=== PATIENT | female | born 1945 | race Hispanic/Latino ===

== ENCOUNTER 2020-08-19 06:17 | Emergency (ER) | payer MEDICAID, MEDICARE ==
[2020-08-19] MEDS ORDERED: ASPIRIN 325 MG TAB PO ONE (06:27)
--- NOTE | 2020-08-19 07:05 | XRay Report ---
XR chest routine 2V INDICATION / CLINICAL INFORMATION: chest pain COMPARISON: None available. FINDINGS: SUPPORT DEVICES: Transvenous pacemaker. HEART / MEDIASTINUM: No significant abnormality. LUNGS / PLEURA: Lungs are clear. Costophrenic sulci are sharp. No pneumothorax. ADDITIONAL FINDINGS: No significant additional findings. IMPRESSION: 1. No acute findings. Signer Name: Maximiliano Dela Cruz MD Signed: 08/19/2020 7:01 AM Workstation Name: [id number]
[2020-08-19 07:22] LABS: Basophils % (Auto) 0.5 % (0.0-1.8); Eosinophils # (Auto) 0.3 K/mm3 (0.0-0.4); Eosinophils % (Auto) 3.6 % (0.0-4.3); Hematocrit 39.7 % (30.3-42.9); Hemoglobin 13.3 gm/dl (10.1-14.3); Lymphocytes # (Auto) 2.2 K/mm3 (1.2-5.4); Lymphocytes % (Auto) 26.9 % (13.4-35.0); Mean Corpuscular HGB Conc 34 % (30-34); Mean Corpuscular Volume 85 fl (79-97); Monocytes # (Auto) 0.8 K/mm3 (0.0-0.8); Monocytes % (Auto) 9.3 % (0.0-7.3); Platelet Count 335 K/mm3 (140-440); Red Blood Count 4.67 M/mm3 (3.65-5.03); Red Cell Distribution Width 14.6 % (13.2-15.2)
[2020-08-19 07:47] LABS: Alanine Aminotransferase 21 units/L (7-56); Albumin 4.5 g/dL (3.9-5); Blood Urea Nitrogen 16 mg/dL (7-17); Calcium 9.8 mg/dL (8.4-10.2); Hemolysis Index 4
[2020-08-19 07:48] LABS: BUN/Creatinine Ratio 23
[2020-08-19] MEDS ORDERED: HYDROcodone/ACETAMINOPHEN 5-325 MG TAB PO ONE (08:48)
[2020-08-19] MEDS ORDERED: ASPIRIN 81 MG TAB CHEW PO ONE (08:48)
--- NOTE | 2020-08-19 08:48 | Emergency Department Report ---
ED Chest Pain HPI - General Chief Complaint: Chest Pain Stated Complaint: CHEST PAIN Time Seen by Provider: 08/19/20 07:58 Source: patient Mode of arrival: Ambulatory Limitations: No Limitations - History of Present Illness Initial Comments: This is a 75-year-old female who presents to the emergency department with a complaint of some pain felt in the right lower chest that radiates into the upper ches and towards the back t. This started about 9 or 10 PM last night. The patient has been riding in a car for the past 10 to 12 hours as a d rive from [facility] trying to get down to [facility]. Patient denies any shortness of breath, fever, cough, lower extremity swelling, abdominal pain, nausea, vomiting or diaphoresis. Patient has a history of paroxysmal atrial fibrillation anticoagulated on Eliquis, a pacemaker in place, high cholesterol. She denies any tobacco or illicit drug use. Currently, at the time of my examination, the patient's pain is 5 out of 10 in intensity. No known aggravating or alleviating factors. Severity scale (0 -10): 5 - Related Data Home Medications Medication Instructions Recorded Confirmed Last Taken Apixaban [Eliquis] 5 mg PO BID 08/19/20 08/19/20 Unknown AtorvaSTATin [Lipitor] 20 mg PO QHS 08/19/20 08/19/20 Unknown Fish Oil 1 tab PO DAILY 08/19/20 08/19/20 Unknown Flecainide [Tambocor] 150 mg PO BID 08/19/20 08/19/20 Unknown Magnesium Oxide [Magnesium] 400 mg PO DAILY 08/19/20 08/19/20 Unknown Metoprolol [Lopressor TAB] 25 mg PO DAILY 08/19/20 08/19/20 Unknown Vitamin C 1 tab PO DAILY 08/19/20 08/19/20 Unknown Vitamin D (Nf) 1 tab PO DAILY 08/19/20 08/19/20 Unknown Zinc 1 tab PO DAILY 08/19/20 08/19/20 Unknown Allergies Allergy/AdvReac Type Severity Reaction Status Date / Time Penicillins Allergy Hives Verified 08/19/20 06:27 Heart Score - HEART Score History: Slightly suspicious EKG: Normal Age: > 65 Risk factors: 1-2 risk factors Troponin: < normal limit HEART Score: 3 - EKG Read Time Time EKG Completed: 06:22 EKG Read Time: 06:23 - Critical Actions Critical Actions: 0-3 pts:0.9-1.7%risk of adverse cardiac event.Candidate for discharge ED Review of Systems ROS: Stated complaint: CHEST PAIN Other details as noted in HPI Comment: All other systems reviewed and negative Constitutional: denies: chills, fever Eyes: denies: eye pain, vision change ENT: denies: ear pain, throat pain Respiratory: denies: cough, shortness of breath Cardiovascular: chest pain. denies: edema Gastrointestinal: denies: abdominal pain, nausea, vomiting Genitourinary: denies: dysuria, discharge Musculoskeletal: back pain. denies: joint swelling, arthralgia Skin: denies: rash, lesions Neurological: denies: headache, weakness ED Past Medical Hx - Past Medical History Previous Medical History?: Yes Hx Arthritis: Yes Additional medical history: pacemaker, high cholestrol, Afib - Surgical History Past Surgical History?: Yes Additional Surgical History: hysterectomy, tonsillectomy, pin @ R hip - Medications Home Medications: Home Medications Medication Instructions Recorded Confirmed Last Taken Type Apixaban [Eliquis] 5 mg PO BID 08/19/20 08/19/20 Unknown History AtorvaSTATin [Lipitor] 20 mg PO QHS 08/19/20 08/19/20 Unknown History Fish Oil 1 tab PO DAILY 08/19/20 08/19/20 Unknown History Flecainide [Tambocor] 150 mg PO BID 08/19/20 08/19/20 Unknown History Magnesium Oxide [Magnesium] 400 mg PO DAILY 08/19/20 08/19/20 Unknown History Metoprolol [Lopressor TAB] 25 mg PO DAILY 08/19/20 08/19/20 Unknown History Vitamin C 1 tab PO DAILY 08/19/20 08/19/20 Unknown History Vitamin D (Nf) 1 tab PO DAILY 08/19/20 08/19/20 Unknown History Zinc 1 tab PO DAILY 08/19/20 08/19/20 Unknown History ED Physical Exam - General Limitations: No Limitations - Other Other exam information: GENERAL: The patient is well-developed well-nourished. HENT: Normocephalic. Atraumatic. Patient has moist mucous membranes. EYES: Extraocular motions are intact. NECK: Supple. Trachea is midline. CHEST/LUNGS: Clear to auscultation. There is no respiratory distress noted. Chest pain is not reproducible to palpation of the chest wall. No crepitus or deformity. HEART/CARDIOVASCULAR: Regular. There is no tachycardia. There is no murmur. ABDOMEN: Abdomen is soft, nontender. Patient has normal bowel sounds. There is no abdominal distention. SKIN: Skin is warm and dry. NEURO: The patient is awake, alert, and oriented. The patient is cooperative. The patient has no focal neurologic deficits. Normal speech. MUSCULOSKELETAL: There is no tenderness or deformity. There is no limitation range of motion. ED Course Vital Signs 08/19/20 08/19/20 08/19/20 06:30 08:20 08:30 Temperature 98.2 F Pulse Rate 74 60 Respiratory 18 11 L Rate Blood Pressure 144/68 Blood Pressure 150/93 [Right] O2 Sat by Pulse 100 99 96 Oximetry 08/19/20 08:46 Temperature Pulse Rate 61 Respiratory 21 Rate Blood Pressure 144/68 Blood Pressure [Right] O2 Sat by Pulse 98 Oximetry ROSIE score - Rosie Score Age > 65: (0) No Aspirin use within the Past 7 Days: (0) No 3 or more CAD Risk Factors: (0) No 2 or more Angina events in past 24 hrs: (1) Yes Known CAD with more than 50% Stenosis: (0) No Elevated Cardiac Markers: (0) No ST Deviation Greater than 0.5mm: (0) No ROSIE Score: 1 ED Medical Decision Making - Lab Data Result diagrams: 08/19/20 06:52 08/19/20 06:52 - EKG Data -: EKG Interpreted by Tn EKG shows normal: sinus rhythm (Atrial paced), axis, intervals, QRS complexes, ST-T waves Rate: normal - EKG Data When compared to previous EKG there are: previous EKG unavailable Interpretation: other (Atrial paced at 64 bpm, normal axis, normal intervals. No ST elevation SD.) - Radiology Data Radiology results: image reviewed interpreted by me: Chest x-ray does not show any acute process. There are no pleural effusions, obvious pneumonia and there is no pneumothorax. - Medical Decision Making This patient presents to the emergency department with some acute chest pain that started last night during her drive from [place] to [place]. It is right lower chest and radiates up to the upper midsternal chest and then to the back. Heart and lungs are normal to auscultation. She does not appear in any respiratory or acute distress. EKG is atrial paced and otherwise does not show any morphology consistent with ST elevation myocardial infarction. Chest x-ray does not show any pneumonia, pleural effusions, pneumothorax, focal consolidation, widened mediastinum, or any other acute process. Patient's labs have been mostly unremarkable thus far including CBC, metabolic panel and negative troponins x2. The patient has a history of paroxysmal atrial fibrillation for which she is anticoagulated on Eliquis. She does not have any significant tachycardia or any hypoxia and therefore I believe that a PE is less likely as the etiology of her symptoms. Patient was given some aspirin and a [place]. She had some improvement of her chest pain but it did not resolve. The patient has a heart score of 3. Given the patient's history, her continued chest discomfort, and the fact that she does not have the ability to have close outpatient follow-up, I recommended that the patient get admitted to the emergency department for serial troponins and either a stress test or cardiology consultation. However, the patient is on her way down to [place]. Her and granddaughter are currently waiting in the car. Therefore, the patient has decided to leave AGAINST MEDICAL ADVICE. She understands the risks of leaving at this time including increased chest pain, SD, debility or even . She understands that she can return to this emergency department if she changes her mind about admission and/or further evaluation, or with any acute distress. Critical Care Time: No Critical care attestation.: If time is entered above; I have spent that time in minutes in the direct care of this critically ill patient, excluding procedure time. ED Disposition Clinical Impression: Chest pain Qualifiers: Chest pain type: unspecified Qualified Code(s): R07.9 - Chest pain, unspecified Disposition: DC-07 LEFT AGAINST MED ADVICE Is pt being admited?: No Condition: Stable Instructions: Nonspecific Chest Pain, Adult Additional Instructions: Please return to this emergency department, or the closest emergency department, with any worsening of your symptoms, if you change your mind about admission for further evaluation, or with any acute distress. Otherwise, please take all medications as previously prescribed. Follow-up with your tosser as soon as possible. Referrals: PRIMARY MD KAYLA [Primary Care Provider] - 3-5 Days Forms: AMA Form Time of Disposition: 10:30
[2020-08-19 08:49] VITALS: BP 144/68
--- NOTE | 2020-08-20 10:32 | Electrocardiograph Report ---
[facility] Test Date: 2020-08-19 Test Time: 06:22:04 Pat Name: LINDA MONTOYA Department: Room: Gender: F Emergency Response Coordinator: LILLY : 1945 Requested By: KEREN WARREN Order Number: [id number] Reading MD: Genoveva Meraz Measurements Intervals [place] Rate: 64 P: NE: 148 QRS: 12 QRSD: 105 T: 3 QT: 449 QTc: 463 Interpretive Statements Atrial-paced rhythm No previous ECG available for comparison Electronically Signed On 08-20-2020 10:32:16 EDT by Genoveva Meraz
== END 2020-08-19 10:50 | disposition left against medical advice (07) ==
LOC: ED 06:17
DX: R07.89 Other chest pain (principal); M19.91 Primary osteoarthritis, unspecified site; Z90.89 Acquired absence of other organs; Z98.890 Other specified postprocedural states; Z79.899 Other long term (current) drug therapy; Z88.0 Allergy status to penicillin
CPT/HCPCS: 36415; 71046; 80053; 84484; 85025; 93005